=== PATIENT | female | born 1990 | race Caucasian/White ===

== ENCOUNTER 2019-04-02 12:03 | Emergency (ER) | payer OTHER ==
[~2019-04-02] VITALS: Ht 152.4 cm; Wt 98.2 kg
[2019-04-02 12:27] VITALS: BP 121/80
== END 2019-04-02 13:16 | disposition home or self-care (01) ==
LOC: ED 13:15
DX: J01.90 Acute sinusitis, unspecified (principal)
CPT/HCPCS: 71046; 99283